=== PATIENT | female | born 2000 | race African-American/Black ===

== ENCOUNTER 2020-02-21 18:37 | Emergency (ER) | payer OTHER ==
[2020-02-21] MEDS ORDERED: NORMAL SALINE 1000 ML 1,000 ML IV ONE ×2 (18:52→20:00)
--- NOTE | 2020-02-21 18:54 | ER Document Report ---
ED GI/ - General Chief Complaint: Vaginal Pain Stated Complaint: VAGINAL PAIN Time Seen by Provider: 02/21/20 18:45 Mode of Arrival: Ambulatory Notes: 19-year-old female presents to ED for complaint of vaginal pain every time she urinates since Saturday. She states she is a type I diabetic. Last menstrual period was February 14. She states her sugar has been running about 140. Her apical pulse was about 119 at this time. Will get blood urine Accu-Chek and give her a liter of fluids. Patient is alert oriented respirations regular nonlabored speaking in full sentences. - HPI Patient complains to provider of: Vaginal pain Onset: Other - Since Saturday when urinates Timing/Duration: Intermittent Quality of pain: Burning Severity at maximum: Mild Severity in ED: Mild Pain Level: 1 Location: Vaginal Vaginal bleeding (Compared to normal period): None LMP: February 15, 2020 - Related Data Allergies/Adverse Reactions: No Known Allergies Allergy (Unverified 02/21/20 18:52)
--- NOTE | 2020-02-21 19:01 | ER Document Report ---
ED Medical Screen (RME) - General Chief Complaint: High Blood Sugar Stated Complaint: VAGINAL PAIN Time Seen by Provider: 02/21/20 18:45 Mode of Arrival: Ambulatory Notes: 19-year-old female presents to ED for complaint of vaginal pain every time she urinates since Saturday. She states she is a type I diabetic. Last menstrual period was February 14. She states her sugar has been running about 140. Her apical pulse was about 119 at this time. Will get blood urine Accu-Chek and give her a liter of fluids. Patient is alert oriented respirations regular nonlabored speaking in full sentences. Will start DKA work-up blood sugar is high. - Related Data Allergies/Adverse Reactions: No Known Allergies Allergy (Unverified 02/21/20 18:52) Past Medical History - Social History Chew tobacco use (# tins/day): No Frequency of alcohol use: None Drug Abuse: None Physical Exam - Vital signs Vitals: Temp Pulse Resp BP Pulse Ox 98.3 F 123 H 16 130/80 H 95 02/21/20 18:47 02/21/20 18:47 02/21/20 18:47 02/21/20 18:47 02/21/20 18:47 Course - Vital Signs Vital signs: Temp Pulse Resp BP Pulse Ox 98.3 F 123 H 16 130/80 H 95 02/21/20 18:48 02/21/20 18:47 02/21/20 18:47 02/21/20 18:47 02/21/20 18:47
[2020-02-21 19:16] LABS: ABSOLUTE LYMPHOCYTES (AUTO) 0.8 10^3/uL (0.5-4.7); ABSOLUTE MONOCYTES (AUTO) 0.4 10^3/uL (0.1-1.4); ABSOLUTE NEUT (AUTO) 3.4 10^3/uL (1.7-8.2); BASOPHILS % (AUTO) 0.2 % (0-2); EOSINOPHILS % (AUTO) 0.6 % (0-6); HEMATOCRIT 38.1 % (36.0-47.0); HEMOGLOBIN 12.2 g/dL (12.0-15.5); LYMPHOCYTES % (AUTO) 17.5 % (13-45); MEAN CORPUSCULAR HEMOGLOBIN 28.7 pg (27.0-33.4); MEAN CORPUSCULAR VOLUME 90 fl (80-97); MONOCYTES % (AUTO) 8.5 % (3-13); PLATELET COUNT 371 10^3/uL (150-450); RED BLOOD COUNT 4.25 10^6/uL (3.72-5.28); SEGMENTED NEUTROPHILS % (AUTO) 73.2 % (42-78); TOTAL CELLS COUNTED % (AUTO) 100 %; WHITE BLOOD COUNT 4.7 10^3/uL (4.0-10.5)
[2020-02-21 19:18] LABS: VENOUS BLOOD BASE EXCESS -3.1 mmol/L; VENOUS BLOOD HCO3 22.8 mmol/L (20-32); VENOUS BLOOD PCO2 44.1 mmHg (35-63); VENOUS BLOOD PH 7.33 (7.30-7.42)
[2020-02-21 19:34] LABS: APPEARANCE,URINE SLIGHTLY-CLOUDY; BILIRUBIN,URINE NEGATIVE (NEGATIVE); COLOR,URINE COLORLESS; GLUCOSE, URINE >=500 mg/dL (NEGATIVE); KETONES,URINE 20 mg/dL (NEGATIVE); LEUKOCYTE ESTERASE,URINE NEGATIVE (NEGATIVE); NITRITE,URINE NEGATIVE (NEGATIVE); PROTEIN,URINE NEGATIVE (NEGATIVE); URINE SPECIFIC GRAVITY 1.028; UROBILINOGEN,URINE NEGATIVE mg/dL (<2.0)
[2020-02-21 19:35] LABS: ALBUMIN 3.8 g/dL (3.7-5.6); ALKALINE PHOSPHATASE 94 U/L (50-135); ANION GAP 8 (5-19); ASPARTATE AMINO TRANSFERASE 19 U/L (5-30); BILIRUBIN,TOTAL 0.5 mg/dL (0.2-1.3); BLOOD UREA NITROGEN 10 mg/dL (7-20); CALCIUM 8.7 mg/dL (8.4-10.2); CARBON DIOXIDE 24 mmol/L (22-30); CHLORIDE 98 mmol/L (98-107); POTASSIUM 4.4 mmol/L (3.6-5.0); TOTAL PROTEIN 6.9 g/dL (6.3-8.2)
[2020-02-21 19:52] LABS: GLUCOSE 746 mg/dL (75-110)
[2020-02-21] MEDS ORDERED: INSULIN REG, HUMAN 100 UNIT/ML 3 ML VIAL (PYX) IV ONE (20:28)
[2020-02-21] MEDS ORDERED: NITROFURANTOIN MONOHYD/M-CRYST 100 MG CAPSULE PO ONE (20:29)
--- NOTE | 2020-02-21 21:12 | ER Document Report ---
Entered by SKIP MORRIS SCRIBE 02/21/202016 Acting as scribe for:SHANIKA LUCIA IV, MD ED General - General Chief Complaint: High Blood Sugar Stated Complaint: VAGINAL PAIN Time Seen by Provider: 02/21/20 18:45 Mode of Arrival: Ambulatory Information source: Patient Notes: This 19 year old female patient with a history of type 1 diabetes mellitus presents to the ED today with complaints of dysuria and vaginal pain with urination for the past x5 days. Patient describes the pain as a stinging sensation. She also notes urinary frequency, but denies burning. She reports that she is compliant with her insulin, stating that she takes x45 units in the morning and the afternoon, and uses a sliding scale prn. She admits that she ate a handful of starbursts prior to arrival. - Related Data Allergies/Adverse Reactions: No Known Allergies Allergy (Verified 02/21/20 19:41) Past Medical History - General Information source: Patient Last Menstrual Period: 02/14 - Social History Smoking Status: Never Smoker Cigarette use (# per day): No Chew tobacco use (# tins/day): No Smoking Education Provided: No Frequency of alcohol use: None Drug Abuse: None Family History: Reviewed & Not Pertinent Patient has suicidal ideation: No Patient has homicidal ideation: No Endocrine Medical History: Reports: Hx Diabetes Mellitus Type 1 Review of Systems - Review of Systems Constitutional: No symptoms reported EENT: No symptoms reported Cardiovascular: No symptoms reported Respiratory: No symptoms reported Gastrointestinal: No symptoms reported Genitourinary: See HPI, Dysuria, Frequency. denies: Burning Female Genitourinary: See HPI, Other - Vaginal pain Musculoskeletal: No symptoms reported Skin: No symptoms reported Hematologic/Lymphatic: No symptoms reported Neurological/Psychological: No symptoms reported -: Yes All other systems reviewed and negative Physical Exam - Vital signs Vitals: Temp Pulse Resp BP Pulse Ox 98.3 F 123 H 16 130/80 H 95 02/21/20 18:47 02/21/20 18:47 02/21/20 18:47 02/21/20 18:47 02/21/20 18:47 - General General appearance: Alert, Other - Non-toxic appearing In distress: None - HEENT Head: Normocephalic, Atraumatic Eyes: Normal Pupils: PERRL - Respiratory Respiratory status: No respiratory distress Chest status: Nontender Breath sounds: Normal Chest palpation: Normal - Cardiovascular Rhythm: Regular Heart sounds: Normal auscultation Murmur: No Friction rub: No Gallop: None auscultated - Abdominal Inspection: Normal Distension: No distension Bowel sounds: Normal Tenderness: Nontender - Abdomen soft Organomegaly: No organomegaly - Back Back: Normal, Nontender - Extremities General upper extremity: Normal inspection General lower extremity: Normal inspection - Neurological Neuro grossly intact: Yes Orientation: AAOx4 - Psychological Associated symptoms: Normal affect, Normal mood - Skin Skin Temperature: Warm Skin Moisture: Dry Skin Color: Normal Course - Re-evaluation Re-evalutation: 02/21/20 22:06 Results of ED MSE discussed with patient. Importance of taking prescribed diab etic medications as directed discussed with patient. Importance of avoiding dietary indiscretion with diabetes also discussed with patient. All questions were answered prior to discharge. Emergency signs and symptoms, reasons to return to the emergency department discussed with patient. - Vital Signs Vital signs: Temp Pulse Resp BP Pulse Ox 98.3 F 123 H 21 119/80 100 02/21/20 18:48 02/21/20 18:47 02/21/20 21:01 02/21/20 21:33 02/21/20 22:00 - Laboratory Result Diagrams: 02/21/20 19:10 02/21/20 19:10 Laboratory results interpreted by me: 02/21/20 02/21/20 19:10 19:10 Sodium 130.4 L Glucose 746 H* Urine Glucose (UA) >=500 H Urine Ketones 20 H Urine Blood SMALL H Discharge - Discharge Clinical Impression: Hyperglycemia due to diabetes mellitus, Dietary indiscretion UTI (urinary tract infection) Qualifiers: Urinary tract infection type: site unspecified Hematuria presence: with hematuria Qualified Code(s): N39.0 - Urinary tract infection, site not s pecified; R31.9 - Hematuria, unspecified Condition: Good Disposition: HOME, SELF-CARE Instructions: Urinary Tract Infection ([facility]) Additional Instructions: Return to the Emergency Department without delay if any worse. HOME CARE INSTRUCTIONS & INFORMATION: Thank you for choosing us for your me dical needs. We hope you're satisfied with the care you received. After you leave, you must properly care for your problem and, at the same time, observe its progress. Any condition can change. Some illnesses can change rapidly over hours or days. If your condition worsens, return to the Emergency Department or see your physician promptly. ABOUT YOUR X-RAYS AND EKG'S: If you had an EKG or X-rays taken, they have been read by the Emergency Physician. The X-rays and EKG's will also be read by a Radiologist or Rehab Director Occupational Therapist within 24 hours. If discrepancies are noted, you will be notified by telephone. Please be certain the ED has a correct telephone number & address where you can be reached. Also, realize that some fractures or abnormalities do not show up on initial X-rays. If your symptoms continue, see your physician. ABOUT YOUR LABORATORY TEST: If you had laboratory tests, the results have been reviewed by the Emergency Physician. Some test results (for example cultures) may not be available for several days. You will be contacted if any test result shows you need additional treatment. Please be certain the ED has a correct telephone number and address where you can be reached. ABOUT YOUR MEDICATIONS: You will receive instructions on how to take your medicine on the prescription label you receive. Additional information may be provided by the Pharmacy. If you have questions afterwards, call the ED for clarification or further instructions. Some prescribed medications may cause drowsiness. Do not perform tasks such as driving a car or operating machinery without consulting your Pharmacist. If you feel you need a refill of pain medication, your condition will need re-evaluation. Please do not call for a refill of any medication. ABOUT YOUR SIGNATURE: Signature of this document acknowledges to followin. Understanding that you received emergency treatment and that you may be released before al medical problems are known or treated. Please be certain the ED has a correct phone number & address where you can be reached. 2. Acknowledgement that you will arrange for follow-up care as recommended. 3. Authorization for the Emergency Physician to provide information to your follow-up Physician in order to maximize your care. AT ANY TIME, IF YOUR SYMPTOMS CHANGE SIGNIFICANTLY OR WORSEN OR YOU DEVELOP NEW SYMPTOMS, RETURN TO THE EMERGENCY DEPARTMENT IMMEDIATELY FOR RE-EVALUATION. OUR GOAL IS TO PROVIDE EXCELLENT MEDICAL CARE! WE HOPE THAT WE HAVE MET YOUR EXPECTATIONS DURING YOUR EMERGENCY DEPARTMENT VISIT AND THAT YOU FEEL YOU HAVE RECEIVED EXCELLENT CARE! Diabetes You have an abnormally high blood sugar, suspicious for diabetes. Not all high blood sugar requires long-term treatment. High blood sugar can be due to medications, , or the stress of illness. (These cases are "borderline diabetes.") If the doctor feels your high blood sugar might get better with time, you may not require treatment now. You will be scheduled for further evaluation. It's very important that you follow through. Uncontrolled high blood sugar leads to early heart disease, strokes, nerve damage, eye damage, and kidney damage. All diabetics should follow a diet designed to control the blood sugar. Overweight diabetics should exercise regularly and lose weight. If this is not sufficient to control the blood sugar, pills or insulin shots are necessary. Younger people who develop diabetes almost always require insulin daily. Home testing of blood sugars or urine sugar is required. Diabetic teaching is available to help you figure insulin doses and monitor the blood sugar. Call the physician if there is faintness, excess sleepiness, or very rapid breathing. If hypoglycemia (LOW blood sugar) develops, symptoms are shakiness, weakness, sweating, and confusion. In this case, you should eat or drink something with sugar at once. Prescriptions: Nitrofurantoin Monohyd/M-Cryst [Macrobid 100 mg Capsule] 100 mg PO BID 7 Days #14 cap Referrals: ZION DE OLIVEIRA MD [HONORARY] - Follow up tomorrow I personally performed the services described in the documentation, reviewed and edited the documentation which was dictated to the scribe in my presence, and it accurately records my words and actions.
[2020-02-21 22:30] VITALS: BP 119/87
== END 2020-02-21 22:31 | disposition home or self-care (01) ==
LOC: ER 18:37
DX: N39.0 Urinary tract infection, site not specified (principal); R31.9 Hematuria, unspecified; E10.65 Type 1 diabetes mellitus with hyperglycemia; R10.2 Pelvic and perineal pain; R30.0 Dysuria; R35.0 Frequency of micturition; Z79.4 Long term (current) use of insulin
CPT/HCPCS: 99283; 96360; 96361; 36415; 82962; 84703; 85025; 80053; 81001; 82803; J1815; J7030; J8499